=== PATIENT | female | born 2000 | race Caucasian/White ===

== ENCOUNTER 2022-04-05 07:02 | Inpatient (IN) | payer SELFPAY ==
[2022-04-05] MEDS ORDERED: Lidocaine 1% 50 ML MDV INJECT ONE (08:03)
[2022-04-05] MEDS ORDERED: Sodium Chloride 0.9% 10 ML Syringe FLUSH PRN (08:03)
[2022-04-05] MEDS ORDERED: Ondansetron 4 MG/2 ML SDV IVPUSH PRN (08:03)
[2022-04-05] MEDS ORDERED: Nalbuphine 10 MG/0.5 ML Syringe IVPUSH PRN (08:03)
[2022-04-05] MEDS ORDERED: Calcium Carbonate 500 MG Tab.Chew PO PRN (08:03)
[2022-04-05] MEDS ORDERED: Acetaminophen 325 MG Tab PO PRN (08:03)
[2022-04-05] MEDS ORDERED: Oxytocin/Lactated Ringers 10 UNIT/1,000 ML BAG IV SCH ×2 (08:15)
[2022-04-05] MEDS ORDERED: Sodium Chloride 0.9% 10 ML Syringe FLUSH SCH (09:00)
[2022-04-05] MEDS: Lactated Ringers 1,000 ML IV SCH ×4 (09:00→20:02)
[2022-04-05] MEDS ORDERED: diphenhydrAMINE 50 MG/ML SDV IVPUSH PRN (10:12)
[2022-04-05] MEDS ORDERED: fentaNYL 100 MCG/2 ML SDV EPIDUR PRN (10:12)
[2022-04-05] MEDS ORDERED: ePHEDrine 50 MG/ML SDV IVPUSH PRN (10:12)
[2022-04-05] MEDS: Bupivacaine/fentaNYL/NS 100 ML Bag EPIDUR PRN ×2 (10:20→20:01)
[2022-04-05] MEDS ORDERED: ceFAZolin 2 GM in Sodium Chloride 0.9% 50 ML IV ONE (23:51)
[2022-04-05] MEDS ORDERED: Azithromycin 500 MG in Sodium Chloride 0.9% 250 ML IV ONE (23:51)
[2022-04-05] MEDS ORDERED: Metoclopramide 10 MG/2 ML SDV IVPUSH ONE (23:52)
[2022-04-05] MEDS ORDERED: Citric Acid/Sodium Citrate Solution 30 ML Cup PO ONE (23:52)
[2022-04-06] MEDS ORDERED: Phenylephrine HCl In 0.9% NaCl 1 MG/10 ML Vial ONE (00:10)
[2022-04-06] MEDS ORDERED: Oxytocin 10 Units/1 ML SDV ONE ×2 (00:10→00:36)
[2022-04-06] MEDS ORDERED: Ondansetron 4 MG/2 ML SDV ONE (00:10)
[2022-04-06] MEDS ORDERED: Bupivacaine 0.5% 30 ML SDV ONE (00:11)
[2022-04-06] MEDS ORDERED: Ketorolac 30 MG/ML SDV ONE (00:41)
[2022-04-06] MEDS ORDERED: Methylergonovine 0.2 MG/1 ML Amp IM ONE (01:25)
[2022-04-06] MEDS ORDERED: Methylergonovine 0.2 MG/1 ML Amp ONE (01:27)
[2022-04-06] MEDS ORDERED: Misoprostol 200 MCG Tab ONE ×2 (01:43)
[2022-04-06] MEDS: Misoprostol 100 MCG Tab PO SCH ×2 (01:44→05:47)
[2022-04-06] MEDS ORDERED: Ropivacaine 0.2% PF 2 MG/ML 20 ML SDV ONE (02:00)
[2022-04-06] MEDS ORDERED: Lidocaine 2% with EPINEPHrine 1:200,000 20 ML SDV ONE (02:00)
[2022-04-06] MEDS ORDERED: Ondansetron 4 MG/2 ML SDV IV PRN (04:50)
[2022-04-06] MEDS ORDERED: Naloxone 0.4 MG/ML SDV IVPUSH PRN (04:50)
[2022-04-06] MEDS ORDERED: ePHEDrine 50 MG/ML SDV IVPUSH PRN (04:50)
[2022-04-06] MEDS ORDERED: Docusate Sodium 100 MG Cap PO PRN (04:50)
[2022-04-06] MEDS ORDERED: Acetaminophen/oxyCODONE 325-5 MG Tab PO PRN ×2 (04:50)
[2022-04-06] MEDS ORDERED: Dextrose 5%-Lactated Ringers 1,000 ML IV SCH (04:50)
[2022-04-06] MEDS ORDERED: diphenhydrAMINE 50 MG/ML SDV IVPUSH PRN (04:50)
[2022-04-06] MEDS: Ibuprofen 600 MG Tab PO SCH ×4 (05:45→23:08)
[2022-04-06] MEDS ORDERED: Sodium Chloride 0.9% 500 ML IV SCH (06:45)
[2022-04-06] MEDS ORDERED: Acetaminophen 325 MG Tab PO PRN (09:10)
[2022-04-06] MEDS: Prenatal Multivitamin with Calcium/Folic Acid/Iron Tab PO SCH (09:49)
[2022-04-06] MEDS: Clindamycin Phosphate in D5W 900 MG in Premix Bag 1 BAG IV SCH ×4 (10:03→18:07)
[2022-04-06] MEDS: Simethicone 80 MG Tab.Chew PO SCH ×4 (13:07→23:08)
[2022-04-06] MEDS: oxyCODONE 5 MG Tab PO PRN ×2 (13:07→19:58)
[2022-04-07] MEDS: Clindamycin Phosphate in D5W 900 MG in Premix Bag 1 BAG IV SCH ×4 (02:03→11:00)
[2022-04-07] MEDS: Ibuprofen 600 MG Tab PO SCH ×2 (04:45→11:15)
[2022-04-07] MEDS ORDERED: Sodium Chloride 0.9% 1,000 ML IV SCH (06:15)
[2022-04-07] MEDS: Prenatal Multivitamin with Calcium/Folic Acid/Iron Tab PO SCH (09:17)
[2022-04-07] MEDS: Simethicone 80 MG Tab.Chew PO SCH (09:19)
[2022-04-07] MEDS: oxyCODONE 5 MG Tab PO PRN ×2 (12:03→17:01)
== END 2022-04-07 17:00 | disposition home or self-care (01) | DRG 787 ==
LOC: JD.OBCHECK 07:02 → JD.OB 07:13 → JD.OBCHECK 10:00 → JD.OB 10:00 → OBSVTOIN 04-06 → JD.OB 04-06 00:35
PROVIDERS: ADMIT Obstetrics & Gynecology; ATTEND Obstetrics & Gynecology
PROC: 10D00Z1 Extraction of Products of Conception, Low, Open Approach (ICD-10-PCS; principal; 2022-04-06)
PROC: 3E0R3BZ Introduction of Anesthetic Agent into Spinal Canal, Percutaneous Approach (ICD-10-PCS; 2022-04-06)
PROC: 00HU33Z Insertion of Infusion Device into Spinal Canal, Percutaneous Approach (ICD-10-PCS; 2022-04-06)
PROC: 10H07YZ Insertion of Other Device into Products of Conception, Via Natural or Artificial Opening (ICD-10-PCS; 2022-04-06)
PROC: 30233N1 Transfusion of Nonautologous Red Blood Cells into Peripheral Vein, Percutaneous Approach (ICD-10-PCS; 2022-04-07)
DX: O62.0 Primary inadequate contractions (principal); Z3A.39 39 weeks gestation of pregnancy; Z37.0 Single live birth; D62 Acute posthemorrhagic anemia; O72.1 Other immediate postpartum hemorrhage; O33.9 Maternal care for disproportion, unspecified; O33.5XX0 Maternal care for disproportion due to unusually large fetus, not applicable or unspecified; O99.02 Anemia complicating childbirth; O76 Abnormality in fetal heart rate and rhythm complicating labor and delivery
CPT/HCPCS: 01967; 01968; 36415; 36430; 51703; 59025; 80053; 84112; 85025; 86592; 86850; 86900; 86901; 86922; A9270-GY; J0456; J1580; J1885; J2210; J2405; J2590; J2765; J2795; J3490; J7050; J7120; J7121; P9016

== ENCOUNTER 2024-11-24 05:40 | Inpatient (IN) | payer MEDICAID ==
[~2024-11-24 05:40] MED LIST: Lactated Ringers 1,000 ML IV SCH; Sodium Chloride 0.9% 10 ML Syringe FLUSH PRN
[2024-11-24] MEDS: Lactated Ringers 1,000 ML IV SCH (06:10)
[2024-11-24 06:12] LABS: PLATELET COUNT,PLT 230 K/mm3 (150-400); RED BLOOD CELL COUNT 4.19 M/mm3 (4.10-5.30); WHITE BLOOD CELL COUNT,WBC 9.37 K/mm3 (3.9-11.3)
[2024-11-24 06:13] LABS: BASOPHILS ABSOLUTE AUTO 0.0 K/mm3 (0.0-0.2); BASOPHILS PERCENT AUTO 0.2 % (0.0-1.0); EOSINOPHILS ABSOLUTE AUTO 0.1 K/mm3 (0.0-0.4); EOSINOPHILS PERCENT AUTO 0.7 % (0.0-6.0); IMMATURE GRAN ABSOLUTE AUTO 0.07 K/mm3 (0.00-0.05); IMMATURE GRAN PERCENT AUTO 0.7 % (0.0-0.4); LYMPHOCYTES ABSOLUTE AUTO 1.8 K/mm3 (1.0-4.8); LYMPHOCYTES PERCENT AUTO 18.7 % (24.0-44.0); MEAN PLATELET VOLUME 12.5 fl (9.4-12.3); MONOCYTES ABSOLUTE AUTO 0.6 K/mm3 (0.0-0.8); MONOCYTES PERCENT AUTO 6.2 % (0.0-8.0); NEUTROPHILS ABSOLUTE AUTO 6.9 K/mm3 (1.8-7.7); NEUTROPHILS PERCENT AUTO 73.5 % (41.0-71.0); NRBC ABSOLUTE 0.00 (0.00-0.02); NRBC PERCENT 0.0 % (0.0-0.2)
[2024-11-24] MEDS ORDERED: Phenylephrine 1% 10 MG/ML SDV ONE (06:50)
[2024-11-24] MEDS: Citric Acid/Sodium Citrate Solution 30 ML Cup PO ONE ×2 (07:19→09:39)
[2024-11-24] MEDS ORDERED: Oxytocin/0.9 % Sodium Chloride 30 UNIT/500 ML BAG IV ONE (08:15)
[2024-11-24] MEDS ORDERED: Lactated Ringers 1,000 ML ONE (08:17)
[2024-11-24] MEDS ORDERED: Ondansetron 4 MG/2 ML SDV IVPUSH PRN (08:51)
[2024-11-24] MEDS ORDERED: fentaNYL 100 MCG/2 ML SDV IVPUSH PRN (08:51)
[2024-11-24] MEDS ORDERED: diphenhydrAMINE 50 MG/ML SDV IVPUSH PRN (08:51)
[2024-11-24] MEDS: Sodium Chloride 0.9% 10 ML Syringe FLUSH SCH (09:38)
[2024-11-24] MEDS: Ketorolac 30 MG/ML SDV IVPUSH PRN (10:03)
[2024-11-24] MEDS ORDERED: ePHEDrine 50 MG/ML SDV IVPUSH PRN (10:12)
[2024-11-24] MEDS ORDERED: Naloxone 0.4 MG/ML SDV IVPUSH PRN (10:12)
[2024-11-24] MEDS ORDERED: Acetaminophen/oxyCODONE 325-5 MG Tab PO PRN (10:12)
[2024-11-24] MEDS: diphenhydrAMINE 50 MG/ML SDV IVPUSH PRN (12:20)
[2024-11-24] MEDS: Ketorolac 30 MG/ML SDV IVPUSH SCH (16:45)
[2024-11-24] MEDS: Acetaminophen/oxyCODONE 325-5 MG Tab PO PRN (21:38)
[2024-11-25] MEDS: Ketorolac 30 MG/ML SDV IVPUSH SCH (05:11)
[2024-11-25 06:04] LABS: BASOPHILS ABSOLUTE AUTO 0.0 K/mm3 (0.0-0.2); BASOPHILS PERCENT AUTO 0.2 % (0.0-1.0); EOSINOPHILS ABSOLUTE AUTO 0.1 K/mm3 (0.0-0.4); EOSINOPHILS PERCENT AUTO 0.8 % (0.0-6.0); IMMATURE GRAN ABSOLUTE AUTO 0.07 K/mm3 (0.00-0.05); IMMATURE GRAN PERCENT AUTO 0.7 % (0.0-0.4); LYMPHOCYTES ABSOLUTE AUTO 1.8 K/mm3 (1.0-4.8); LYMPHOCYTES PERCENT AUTO 18.0 % (24.0-44.0); MEAN PLATELET VOLUME 12.7 fl (9.4-12.3); MONOCYTES ABSOLUTE AUTO 0.9 K/mm3 (0.0-0.8); MONOCYTES PERCENT AUTO 8.7 % (0.0-8.0); NEUTROPHILS ABSOLUTE AUTO 7.0 K/mm3 (1.8-7.7); NEUTROPHILS PERCENT AUTO 71.6 % (41.0-71.0); NRBC ABSOLUTE 0.00 (0.00-0.02); NRBC PERCENT 0.0 % (0.0-0.2); PLATELET COUNT,PLT 185 K/mm3 (150-400); RED BLOOD CELL COUNT 3.12 M/mm3 (4.10-5.30); WHITE BLOOD CELL COUNT,WBC 9.77 K/mm3 (3.9-11.3)
== END 2024-11-26 12:53 | disposition home or self-care (01) | DRG 788 ==
LOC: JD.OB 05:40
PROVIDERS: ADMIT Obstetrics & Gynecology; ATTEND Obstetrics & Gynecology
PROC: 10D00Z1 Extraction of Products of Conception, Low, Open Approach (ICD-10-PCS; principal; 2024-11-24 07:30)
DX: O34.211 Maternal care for low transverse scar from previous cesarean delivery (principal); Z3A.38 38 weeks gestation of pregnancy; Z37.0 Single live birth; Z79.899 Other long term (current) drug therapy
CPT/HCPCS: 01961; 36415; 59025; 85025; 86592; 86850; 86900; 86901; A9270-GY; J0665; J0690; J1171; J1200; J1885; J2371; J2765; J7120; J7121; J7999